=== PATIENT | female | born 1970 | race Caucasian/White ===

== ENCOUNTER → 2017-01-13 | Outpatient (CLI) | payer OTHER ==
--- NOTE | 2017-01-13 10:37 | REP ---
LEFT TOES, FOUR VIEWS: HISTORY: Injury. There is a nondisplaced fracture of the distal phalange of the first digit. There is no dislocation. The joint spaces are normal in appearance. IMPRESSION: Nondisplaced fracture of the distal phalange of the first digit. Signed by Michael Alonso MD 01/13/2017 10:41 A
== END ==
LOC: M LRY 10:08
PROVIDERS: ATTEND Nurse Practitioner Family
DX: S99.922A Unspecified injury of left foot, initial encounter (principal); W18.30XA Fall on same level, unspecified, initial encounter; Y92.009 Unspecified place in unspecified non-institutional (private) residence as the place of occurrence of the external cause
CPT/HCPCS: 73660; G0463

== ENCOUNTER → 2018-05-31 | Outpatient (CLI) | payer OTHER | LOC: M WHC 09:56 | DX: Z12.31 Encounter for screening mammogram for malignant neoplasm of breast (principal) | CPT/HCPCS: 77067 ==

== ENCOUNTER → 2019-01-16 | Outpatient (CLI) | payer OTHER ==
--- NOTE | 2019-01-16 15:19 | REP ---
RIGHT ANKLE, FOUR VIEWS: HISTORY: Pain. There is no acute fracture or dislocation. The joint space is normal in appearance. Osteophytes are present on the inferior and posterior calcaneus. IMPRESSION: There is no acute fracture or dislocation. Electronically Signed by Michael Alonso MD 01/16/2019 03:26 P
== END ==
LOC: M WUC 14:27
PROVIDERS: ATTEND Family Medicine
DX: M25.571 Pain in right ankle and joints of right foot (principal)
CPT/HCPCS: 73610; G0463

== ENCOUNTER → 2019-10-04 | Outpatient (CLI) | payer OTHER ==
--- NOTE | 2019-10-04 18:45 | REP ---
Right knee series: Five views. History: Knee pain. Findings: There is mild patellar spurring on the sunrise view laterally. Bones, joints and soft tissues are otherwise unremarkable. Impression: Mild patellar spurring. Otherwise negative right knee radiographs. Electronically Signed by Giuseppe Kim MD 10/04/2019 06:35 P
== END ==
LOC: M WUC 17:04
PROVIDERS: ATTEND Nurse Practitioner Family
DX: M25.561 Pain in right knee (principal)

== ENCOUNTER → 2020-01-08 | Outpatient (REF) | payer OTHER | LOC: M LAB 19:52 | PROVIDERS: ATTEND Physician Assistant | DX: N39.0 Urinary tract infection, site not specified (principal) ==

== ENCOUNTER → 2020-11-26 | Outpatient (CLI) | payer OTHER ==
--- NOTE | 2020-11-26 13:31 | REP ---
INDICATION: SCR MAMMO. COMPARISON: 05/31/2018. There are no prior the DBT images to review TECHNIQUE: Digital screening mammography was obtained bilaterally in the CC and MLO projections in both 2D and 3D modalities. FINDINGS: The breasts are unchanged in size and shape. Once again, scattered dense heterogenous fibroglandular elements are seen bilaterally in a stable appearing pattern. In the right breast, upper outer quadrant and seen best on DBT images there is a potential matthew density. No other suspicious features are seen in either breast. There is no skin thickening or nipple retraction. Stable benign calcifications are again seen. IMPRESSION: Potential matthew density seen in the right breast as described above and for which diagnostic digital magnified spot compression views are recommended in the CC and MLO projections along with diagnostic ultrasonography if necessary. ACR category 0 mammogram. Amarilis Rivas RECOMMENDATION: Diagnostic mammography required <Electronically signed by Yadiel Ryan > 11/26/20 [id number]
== END ==
LOC: M WHC 11:06
PROVIDERS: ATTEND Nurse Practitioner Women's Health
DX: Z12.4 Encounter for screening for malignant neoplasm of cervix (principal); N76.0 Acute vaginitis; R92.2 Inconclusive mammogram
CPT/HCPCS: 77063; 77067; 87624; G0123; G0463

== ENCOUNTER → 2020-11-26 | Outpatient (REF) | payer OTHER | LOC: M SFHCWAGY 13:34 | PROVIDERS: ATTEND Nurse Practitioner Women's Health | DX: Z12.4 Encounter for screening for malignant neoplasm of cervix (principal); N76.0 Acute vaginitis ==

== ENCOUNTER → 2022-02-17 | Outpatient (CLI) | payer OTHER | LOC: M WHC 20:11 | PROVIDERS: ATTEND Nurse Practitioner Adult Health | DX: Z12.31 Encounter for screening mammogram for malignant neoplasm of breast (principal); Z53.9 Procedure and treatment not carried out, unspecified reason ==

== ENCOUNTER → 2022-02-18 | Outpatient (CLI) | payer OTHER | LOC: M WHC 13:02 | PROVIDERS: ATTEND Nurse Practitioner Adult Health | DX: Z12.31 Encounter for screening mammogram for malignant neoplasm of breast (principal); R92.2 Inconclusive mammogram ==

== ENCOUNTER → 2022-03-04 | Outpatient (CLI) | payer OTHER | LOC: M WHC 09:52 | PROVIDERS: ATTEND Nurse Practitioner Adult Health | DX: R92.2 Inconclusive mammogram (principal) | CPT/HCPCS: 77066; G0279 ==

== ENCOUNTER → 2023-07-13 | Outpatient (CLI) | payer OTHER | LOC: M WHC 09:27 | PROVIDERS: ATTEND Nurse Practitioner Adult Health | DX: Z12.31 Encounter for screening mammogram for malignant neoplasm of breast (principal); R92.323 Mammographic fibroglandular density, bilateral breasts ==

== ENCOUNTER → 2023-12-20 | Outpatient (REF) | payer OTHER | LOC: M LAB REF 16:38 | PROVIDERS: ATTEND Student in an Organized Health Care Education/Training Program | DX: R30.0 Dysuria (principal) ==